=== PATIENT | female | born 1995 | race American Indian/Alaskan Native ===

== ENCOUNTER 2018-01-19 23:15 | Emergency (ER) | payer BC, OTHER ==
[2018-01-19 23:24] VITALS: BMI 20.5
[2018-01-19 23:30] VITALS: RESP 18
--- NOTE | 2018-01-19 23:40 | ED PDOC ---
Arrival/HPI - General Chief Complaint: Shortness Of Breath Time Seen by Provider: 01/19/18 23:30 Historian: Patient - History of Present Illness Narrative History of Present Illness (Text): 01/19/18 23:40 22 year old female, whose past medical history includes asthma, presents to the emergency department complaining of trouble breathing associated with dry cough and sinus congestion. Patient states she has been having more trouble than usual. Patient is not getting any relief with her inhaler. Patient denies any fever, chills, chest pain, nausea, vomiting, diarrhea, urinary symptoms, back pain, neck pain, headache, dizziness, or any other complaints. Symptom Course: Unchanged Activities at Onset: Light Context: Home Past Medical History - Provider Review Nursing Documentation Reviewed: Yes - Pulmonary Hx Asthma: Yes - Psychiatric Hx Substance Use: No Family/Social History - Physician Review Nursing Documentation Reviewed: Yes Family/Social History: No Known Family HX Smoking Status: Light Smoker < 10 Cigarettes Daily Hx Alcohol Use: Yes Frequency of alcohol use: Socially Hx Substance Use: No Allergies/Home Meds Allergies/Adverse Reactions: Allergies No Known Allergies Allergy (Verified 01/19/18 23:23) Home Medications: Home Meds Medication Instructions Recorded Confirmed Levalbuterol Tartrate [Xopenex Hfa] 15 gm IH Q4 PRN 01/19/18 01/19/18 Review of Systems - Physician Review All systems were reviewed & negative as marked: Yes - Review of Systems Constitutional: absent: Fevers, Other (Chills) ENT: Sinus Congestion Respiratory: SOB, Cough Cardiovascular: absent: Chest Pain Gastrointestinal: absent: Diarrhea, Nausea, Vomiting Genitourinary Female: absent: Dysuria, Frequency, Hematuria Musculoskeletal: absent: Back Pain, Neck Pain Neurological: absent: Headache, Dizziness Physical Exam Vital Signs Reviewed: Yes Vital Signs Temp Pulse Resp BP Pulse Ox 01/20/18 03:01 86 18 100 01/19/18 23:30 98.3 F 86 18 105/51 L 95 Temperature: Afebrile Blood Pressure: Normal Pulse: Regular Respiratory Rate: Normal Appearance: Positive for: Well-Appearing, Non-Toxic, Comfortable Pain Distress: None Mental Status: Positive for: Alert and Oriented X 3 - Systems Exam Head: Present: Atraumatic, Normocephalic Pupils: Present: PERRL Extroacular Muscles: Present: EOMI Conjunctiva: Present: Normal Mouth: Present: Moist Mucous Membranes Neck: Present: Normal Range of Motion Respiratory/Chest: Present: Wheezes (everywhere). No: Respiratory Distress, Accessory Muscle Use, Other (conversational dyspnea) Cardiovascular: Present: Regular Rate and Rhythm, Normal S1, S2. No: Murmurs Abdomen: No: Tenderness, Distention, Peritoneal Signs Back: Present: Normal Inspection Upper Extremity: Present: Normal Inspection. No: Cyanosis, Edema Lower Extremity: Present: Normal Inspection. No: Edema Neurological: Present: GCS=15, CN II-XII Intact, Speech Normal Skin: Present: Warm, Dry, Normal Color. No: Rashes Psychiatric: Present: Alert, Oriented x 3, Normal Insight, Normal Concentration Medical Decision Making ED Course and Treatment: 01/19/18 23:40 Impression: 22 year old female presents complaining of shortness of breath associated with dry cough and sinus congestion. PE shows wheezes everywhere. Plan: -- Labs -- Chest X-Ray -- Albuterol, Douneb, Rocephin, Solu-Medrol, Zithromax -- Reassess and disposition Progress Notes: 01/20/18 01:03 Patient's test came back positive. Chest X-Ray was canceled. 01/20/18 03:05 On reevaluation the patient feels better and is in no acute distress. I have discussed the results and plan with the patient, who expresses understanding. Patient given the opportunity to ask question, all questions were answered and there is agreement with the plan to discharge the patient home. Patient is stable for discharge. Patient was instructed to follow up with physician or return if symptoms persist/worsen or new concerning symptoms arise. - Lab Interpretations Lab Results: 01/20/18 00:37 01/20/18 00:37 Lab Results 01/20/18 00:37: Blood Type Pending, Antibody Screen Pending, BBK History Checked No verified bt 01/20/18 00:37: Beta HCG, Quant 1111.70 H 01/20/18 00:37: Sodium 138, Potassium 3.8, Chloride 105, Carbon Dioxide 20 L, Anion Gap 16, BUN 17, Creatinine 0.7, Est GFR ( Amer) > 60, Est GFR (Non- Af Amer) > 60, Random Glucose 81, Calcium 8.9, Total Bilirubin 0.4, AST 25, ALT 22, Alkaline Phosphatase 55, Total Protein 7.6, Albumin 4.3, Globulin 3.3, Albumin/Globulin Ratio 1.3 01/20/18 00:37: WBC 9.5, RBC 3.98, Hgb 13.3, Hct 37.3, MCV 93.7, MCH 33.4, MCHC 35.7, RDW 12.6, Plt Count 242, MPV 9.8, Gran % 65.2, Lymph % (Auto) 24.8, [place] % (Auto) 5.5, Eos % (Auto) 4.0, Baso % (Auto) 0.5, Gran # 6.17, Lymph # (Auto) 2.4, [place] # (Auto) 0.5, Eos # (Auto) 0.4, Baso # (Auto) 0.05 I have reviewed the lab results: Yes - Medication Orders Current Medication Orders: Discontinued Medications Albuterol Sulfate (Albuterol 0.083% Inhal [place] (2.5 Mg/3 Ml) Ud) 5 mg INH STAT STA Stop: 01/19/18 23:45 Last Admin: 01/20/18 00:44 Dose: 5 mg Albuterol/Ipratropium (Duoneb 3 Mg/0.5 Mg (3 Ml) Ud) 3 ml IH STAT STA Stop: 01/19/18 23:45 Last Admin: 01/20/18 00:44 Dose: 3 ml Ceftriaxone Sodium (Rocephin 1 Gram Ivpb) 1 gm in 100 mls @ 200 mls/hr IVPB STAT STA PRN Reason: Protocol Stop: 01/20/18 00:15 Last Admin: 01/20/18 00:45 Dose: 200 mls/hr eMAR Start Stop Document 01/20/18 00:45 (Rec: 01/20/18 00:45 [id number]) Intravenous Solution Start Date 01/20/18 Start Time 00:45 Azithromycin (Zithromax 500mg In Ns) 500 mg in 250 mls @ 167 mls/hr IVPB STAT STA PRN Reason: Protocol Stop: 01/20/18 01:15 Last Admin: 01/20/18 00:44 Dose: 167 mls/hr eMAR Start Stop Document 01/20/18 00:44 SH (Rec: 01/20/18 00:44 [id number]) Intravenous Solution Start Date 01/20/18 Start Time 00:44 Methylprednisolone (Solu-Medrol) 125 mg IVP STAT STA Stop: 01/19/18 23:47 Last Admin: 01/20/18 00:45 Dose: 125 mg IVP Administration Document 01/20/18 00:45 (Rec: 01/20/18 00:45 [id number]) Charges for Administration # of IVP Administrations 1 - Scribe Statement The provider has reviewed the documentation as recorded by the Tony Sterling Provider Scribe Attestation: All medical record entries made by the Rhondaibe were at my direction and personally dictated by me. I have reviewed the chart and agree that the record accurately reflects my personal performance of the history, physical exam, medical decision making, and the department course for this patient. I have also personally directed, reviewed, and agree with the discharge instructions and disposition. Disposition/Present on Arrival - Present on Arrival Any Indicators Present on Arrival: No History of DVT/PE: No History of Uncontrolled Diabetes: No Urinary Catheter: No History of Decub. Ulcer: No History Surgical Site Infection Following: None - Disposition Have Diagnosis and Disposition been Completed?: Yes Diagnosis: Asthma, Bronchitis, Disposition: HOME/ ROUTINE Disposition Time: 02:37 Patient Plan: Discharge Patient Problems: Current Active Problems Problem Status Onset Asthma Acute Bronchitis Acute Acute Condition: GOOD Discharge Instructions (ExitCare): Asthma in Adults, Asthma, Adult (DC), Acute Bronchitis, Adult (DC), Acute Bronchitis, Medicines for Asthma, Care, - The First Month Additional Instructions: Follow up with [facility] for your . Follow up with your regular doctor for your Asthmatic Bronchitis. Return to us if any problems. Prescriptions: Azithromycin [Zithromax] 500 mg PO DAILY 7 Days #7 tablet Forms: [facility] (Thai), WORK NOTE, SCHOOL NOTE
[2018-01-19] MEDS ORDERED: Albuterol-Ipratrop 3 mg / 0.5 (3 ml) UD IH STA (23:44)
[2018-01-19] MEDS ORDERED: Albuterol 0.083% Inhal Sol (2.5 mg/3 mL) UD INH STA (23:44)
[2018-01-19] MEDS ORDERED: Azithromycin 500MG/NS 250ml 500 MG/250 ML BAG IVPB STA (23:46)
[2018-01-19] MEDS ORDERED: cefTRIAXone 1 gm 1 GM/100 ML BAG IVPB STA (23:46)
[2018-01-20 00:49] LABS: BASO # 0.05 K/mm3 (0.0-2.0); BASO % 0.5 % (0.0-3.0); EOS # 0.4 (0.0-0.7); GRAN # 6.17 (1.4-6.5); GRAN % 65.2 % (50.0-68.0); HEMOGLOBIN 13.3 g/dL (12.0-16.0); LYMPH # 2.4 (1.2-3.4); LYMPH % 24.8 % (22.0-35.0); MEAN CELL VOLUME 93.7 fl (80.0-105.0); MEAN CORPUSCULAR HEMOGLOBIN 33.4 pg (25.0-35.0); MEAN CORPUSCULAR HGB CONC 35.7 g/dl (31.0-37.0); MEAN PLATELET VOLUME 9.8 fl (7.0-11.0); MONO # 0.5 (0.1-0.6); MONO % 5.5 % (1.0-6.0); RBC 3.98 10^6/uL (3.5-6.1); RED CELL DISTRIBUTION WIDTH 12.6 % (11.5-14.5); WHITE BLOOD COUNT 9.5 10^3/ul (4.5-11.0)
[2018-01-20 01:00] LABS: ALB/GLOB RATIO 1.3 (1.1-1.8); ALBUMIN 4.3 g/dL (3.0-4.8); ALT/SGPT 22 U/L (7-56); AST/SGOT 25 U/L (14-36); BLOOD UREA NITROGEN 17 mg/dL (7-21); CALCIUM 8.9 mg/dL (8.4-10.5); GFR AFRICAN-AMERICAN > 60; GFR NON-AFRICAN AMERICAN > 60
[2018-01-20 03:02] VITALS: O2SAT 100
[2018-01-20 03:25] VITALS: BP 111/76; PULSE 98; TEMP 97.8
== END 2018-01-20 03:20 | disposition home or self-care (01) ==
LOC: ED 23:15
DX: O26.899 Other specified pregnancy related conditions, unspecified trimester (principal); Z3A.00 Weeks of gestation of pregnancy not specified; J45.909 Unspecified asthma, uncomplicated; F17.210 Nicotine dependence, cigarettes, uncomplicated
CPT/HCPCS: 80053; 84702; 85025; 86850; 86900; 96374; 99284; J0456; J0696; J2930

== ENCOUNTER 2018-04-01 18:11 | Observation (INO) | payer BC ==
[2018-04-01 18:11] VITALS: BMI 20.5
[2018-04-01] MEDS ORDERED: Albuterol-Ipratrop 3 mg / 0.5 (3 ml) UD ONE (18:31)
[2018-04-01] MEDS: Albuterol-Ipratrop 3 mg / 0.5 (3 ml) UD IH SCH ×3 (19:19→20:59)
--- NOTE | 2018-04-01 19:24 | ED PDOC ---
Arrival/HPI - General Historian: Patient - History of Present Illness Narrative History of Present Illness (Text): 04/01/18 19:00 A 22 year old female, whose past medical history includes asthma, presents to the emergency department complaining of cough for 2-3 days. Patient reports she also was experiencing mild sore throat, which has now subsided. However, afterwards patient's asthma was brought on. Patient used her nebulizer 3-4 times today with some improvement, however she still feels that she is wheezing. Patient denies fever, chest pain, or any other complaints at this time. Denies any recent travel. Admits to coming to the Emergency room in the past for asthma. Has never been intubated. PMD [place] <Holly Pierre PA-C - Last Filed: 04/01/18 22:02> <Michael Doe - Last Filed: 04/02/18 07:20> - General Chief Complaint: Shortness Of Breath Time Seen by Provider: 04/01/18 18:24 Past Medical History - Provider Review Nursing Documentation Reviewed: Yes - Pulmonary Hx Asthma: Yes - Psychiatric Hx Substance Use: No - Surgical History Other/Comment: D&C x 12 days - Anesthesia Hx Anesthesia: Yes Hx Anesthesia Reactions: No Hx Malignant Hyperthermia: No <Holly Pierre PA-C - Last Filed: 04/01/18 22:02> Family/Social History - Physician Review Nursing Documentation Reviewed: Yes Family/Social History: No Known Family HX Smoking Status: Light Smoker < 10 Cigarettes Daily Hx Alcohol Use: Yes Hx Substance Use: No <Holly Pierre PA-C - Last Filed: 04/01/18 22:02> Allergies/Home Meds <Holly Pierre PA-C - Last Filed: 04/01/18 22:02> <Michael Doe - Last Filed: 04/02/18 07:20> Allergies/Adverse Reactions: Allergies No Known Allergies Allergy (Verified 01/19/18 23:23) Home Medications: Home Meds Medication Instructions Recorded Confirmed Levalbuterol Tartrate [Xopenex Hfa] 15 gm IH Q4 PRN 01/19/18 01/19/18 Review of Systems - Physician Review All systems were reviewed & negative as marked: Yes - Review of Systems Constitutional: absent: Fevers ENT: absent: Sore Throat (had mild sore throat before, however it has subsided.) Respiratory: Cough Cardiovascular: absent: Chest Pain <Holly Pierre PA-C - Last Filed: 04/01/18 22:02> Physical Exam Vital Signs Reviewed: Yes Vital Signs Temp Pulse Resp BP Pulse Ox 04/01/18 18:40 18 04/01/18 18:18 97.8 F 99 H 18 126/73 99 Temperature: Afebrile Blood Pressure: Normal Pulse: Regular Respiratory Rate: Normal Appearance: Positive for: Well-Appearing, Non-Toxic, Comfortable Pain Distress: None Mental Status: Positive for: Alert and Oriented X 3 - Systems Exam Head: Present: Atraumatic, Normocephalic Pupils: Present: PERRL Extroacular Muscles: Present: EOMI Conjunctiva: Present: Normal Mouth: Present: Moist Mucous Membranes Neck: Present: Normal Range of Motion Respiratory/Chest: Present: Wheezes (expiratory wheezing.) Cardiovascular: Present: Regular Rate and Rhythm, Normal S1, S2. No: Murmurs Abdomen: No: Tenderness, Distention, Peritoneal Signs Back: Present: Normal Inspection Upper Extremity: Present: Normal Inspection. No: Cyanosis, Edema Lower Extremity: Present: Normal Inspection. No: Edema Neurological: Present: GCS=15, CN II-XII Intact, Speech Normal Skin: Present: Warm, Dry, Normal Color. No: Rashes Psychiatric: Present: Alert, Oriented x 3, Normal Insight, Normal Concentration <Holly Pierre PA-C - Last Filed: 04/01/18 22:02> Vital Signs Temp Pulse Resp BP Pulse Ox 04/01/18 21:18 130 H 22 122/72 100 04/01/18 18:40 18 04/01/18 18:18 97.8 F 99 H 18 126/73 99 <Michael Doe - Last Filed: 04/02/18 07:20> Medical Decision Making ED Course and Treatment: 04/01/18 19:05 Impression: 22 year old female with cough. Plan: -- SOLU-Medrol -- Reassess and disposition Progress Notes: On reevaluation, patient reports mild improvement of symptoms, still is wheezing, denies any CP. She reports having bronchitis in December and taking antibiotics then and her symptoms had improved. On exam, patient remains awake alert and oriented 3 in no acute respiratory distress. Neck is supple, lungs +scattered rhonchi with mild expiratory wheezing, cardiac tachycardic, repeat neuro exam shows no focal findings. Labs, duonebs x2, Mg 2 g IV and CXR ordered. Labs reviewed K 3.2, rest of labs wnl. Given KCl PO. CXR : NAD, as read by KENDELL. On second reevaluation, patient reports that she still has a mild wheeze, denies any CP. On exam, patient remains awake alert and oriented 3 in no acute respiratory distress. Neck is supple, lungs +scattered rhonchi with faint expiratory wheezing still present, cardiac tachycardic. Patient agrees with observation for status asthmaticus. Case d/w Dr. Davis and agrees with plan for observation. - Medication Orders Current Medication Orders: Discontinued Medications Albuterol/Ipratropium (Duoneb 3 Mg/0.5 Mg (3 Ml) Ud) 3 ml IH Q15M LEAH Stop: 04/01/18 19:16 Last Admin: 04/01/18 19:19 Dose: 3 ml Methylprednisolone (Solu-Medrol) 125 mg IM STAT STA Stop: 04/01/18 18:43 Last Admin: 04/01/18 19:19 Dose: 125 mg IM Administration Charges Document 04/01/18 19:19 EQ (Rec: 04/01/18 19:19 EQ [id number]) Injection Site MAR Injection Site Left Deltoid Charges for Administration # of IM Administrations 1 <Ignacio TOMLINSON,Holly Patel - Last Filed: 04/01/18 22:02> - Lab Interpretations Lab Results: 04/01/18 20:40 04/01/18 20:40 Lab Results 04/01/18 20:40: Sodium 140, Potassium 3.2 L, Chloride 105, Carbon Dioxide 22, Anion Gap 17, BUN 5 L, Creatinine 0.7, Est GFR ( Amer) > 60, Est GFR (Non-Af Amer) > 60, Random Glucose 124 H, Calcium 8.8, Magnesium 2.2, Total Bilirubin 0.4, AST 28, ALT 19, Alkaline Phosphatase 51, Total Protein 8.6 H, Albumin 4.8, Globulin 3.9, Albumin/Globulin Ratio 1.2 04/01/18 20:40: WBC 9.1, RBC 4.20, Hgb 14.2, Hct 41.3, MCV 98.3 D, MCH 33.8, MCHC 34.4, RDW 13.3, Plt Count 241, MPV 9.7, Gran % 86.9 H, Lymph % (Auto) 7.5 L , [place] % (Auto) 3.3, Eos % (Auto) 2.2, Baso % (Auto) 0.1, Gran # 7.87 H, Lymph # (Auto) 0.7 L, [place] # (Auto) 0.3, Eos # (Auto) 0.2, Baso # (Auto) 0.01 - RAD Interpretation Radiology Orders: 04/01/18 20:13 CHEST TWO VIEWS (PA/LAT) [RAD] Stat - Medication Orders Current Medication Orders: Acetaminophen (Tylenol 325mg Tab) 650 mg PO Q6H PRN PRN Reason: Fever >100.4 F Albuterol/Ipratropium (Duoneb 3 Mg/0.5 Mg (3 Ml) Ud) 3 ml IH Q2H PRN PRN Reason: Shortness of Breath Albuterol/Ipratropium (Duoneb 3 Mg/0.5 Mg (3 Ml) Ud) 3 ml IH [id number] [facility] Last Admin: 04/02/18 05:00 Dose: 3 ml Ceftriaxone Sodium (Rocephin 1 Gram Ivpb) 1 gm in 100 mls @ 100 mls/hr IVPB DAILY LEAH; Protocol Azithromycin (Zithromax 500mg In Ns) 500 mg in 250 mls @ 167 mls/hr IVPB DAILY LEAH; Protocol Methylprednisolone (Solu-Medrol) 40 mg IV Q8H LEAH Last Admin: 04/02/18 05:55 Dose: 40 mg eMAR Start Stop Document 04/02/18 05:55 SD (Rec: 04/02/18 05:55 SD [id number] Intravenous Solution Start Date 04/02/18 Start Time 05:55 Ondansetron HCl (Zofran Inj) 4 mg IVP Q6H PRN PRN Reason: Nausea/Vomiting Pantoprazole Sodium (Protonix Ec Tab) 40 mg PO 0630 [facility] Last Admin: 04/02/18 05:55 Dose: 40 mg Discontinued Medications Albuterol/Ipratropium (Duoneb 3 Mg/0.5 Mg (3 Ml) Ud) 3 ml IH Q15M LEAH Stop: 04/01/18 19:16 Last Admin: 04/01/18 19:19 Dose: 3 ml Albuterol/Ipratropium (Duoneb 3 Mg/0.5 Mg (3 Ml) Ud) 3 ml IH Q15M LEAH Stop: 04/01/18 20:31 Last Admin: 04/01/18 20:59 Dose: 3 ml Magnesium Sulfate (Magnesium Sulfate 2 Gm/50 Ml Water) 2 gm in 50 mls @ 50 mls/hr IVPB ONCE ONE Stop: 04/01/18 21:13 Last Admin: 04/01/18 20:47 Dose: 50 mls/hr eMAR Start Stop Document 04/01/18 20:47 CNR (Rec: 04/01/18 20:47 CNR [facility] [id number] Intravenous Solution Start Date 04/01/18 Start Time 20:47 End Date 04/01/18 End time 21:47 Total Infusion Time 60 Sodium Chloride (Sodium Chloride 0.9%) 1,000 mls @ 1,000 mls/hr IV .Q1H STA Stop: 04/01/18 21:13 Last Admin: 04/01/18 20:47 Dose: 1,000 mls/hr eMAR Start Stop Document 04/01/18 20:47 CNR (Rec: 04/01/18 20:47 CNR [facility] [id number] Intravenous Solution Start Date 04/01/18 Start Time 20:47 End Date 04/01/18 End time 21:47 Total Infusion Time 60 Methylprednisolone (Solu-Medrol) 125 mg IM STAT STA Stop: 04/01/18 18:43 Last Admin: 04/01/18 19:19 Dose: 125 mg IM Administration Charges Document 04/01/18 19:19 EQ (Rec: 04/01/18 19:19 EQ [id number]) Injection Site MAR Injection Site Left Deltoid Charges for Administration # of IM Administrations 1 Potassium Chloride (Potassium Chloride Oral Soln) 40 meq PO STAT STA Stop: 04/01/18 21:34 Last Admin: 04/01/18 21:43 Dose: 40 meq <Michael Doe - Last Filed: 10/02/18 07:20> - PA / REEL TENDER / Resident Statement VIRAL has reviewed & agrees with the documentation as recorded. - Scribe Statement The provider has reviewed the documentation as recorded by the Tony Mesa Provider Scribe Provider Tony Attestation: All medical record entries made by the Scribe were at my direction and personally dictated by me. I have reviewed the chart and agree that the record accurately reflects my personal performance of the history, physical exam, medical decision making, and the department course for this patient. I have also personally directed, reviewed, and agree with the discharge instructions and disposition. <Holly Pierre PA-C - Last Filed: 04/01/18 22:02> - PA / REEL TENDER / Resident Statement VIRAL has reviewed & agrees with the documentation as recorded. <Michael Doe - Last Filed: 04/02/18 07:20> Disposition/Present on Arrival - Present on Arrival Any Indicators Present on Arrival: No History of DVT/PE: No History of Uncontrolled Diabetes: No Urinary Catheter: No History of Decub. Ulcer: No History Surgical Site Infection Following: None - Disposition Have Diagnosis and Disposition been Completed?: Yes Disposition Time: 22:00 Patient Plan: Observation <Holly Pierre PA-C - Last Filed: 04/01/18 22:02> <Michael Doe - Last Filed: 04/02/18 07:20> - Disposition Diagnosis: Status asthmaticus Disposition: HOSPITALIZED Patient Problems: Current Active Problems Problem Status Onset Status asthmaticus Acute Condition: STABLE
[2018-04-01] MEDS ORDERED: Sodium Chloride 0.9% 1,000 ML IV STA (20:14)
[2018-04-01] MEDS ORDERED: Magnesium Sulfate 2 gm/50 ml 2 GM/50 ML BAG IVPB ONE (20:14)
[2018-04-01 21:12] LABS: BASO # 0.01 K/mm3 (0.0-2.0); BASO % 0.1 % (0.0-3.0); EOS # 0.2 (0.0-0.7); EOS % 2.2 % (1.5-5.0); GRAN # 7.87 (1.4-6.5); GRAN % 86.9 % (50.0-68.0); HEMOGLOBIN 14.2 g/dL (12.0-16.0); LYMPH # 0.7 (1.2-3.4); LYMPH % 7.5 % (22.0-35.0); MEAN CELL VOLUME 98.3 fl (80.0-105.0); MEAN CORPUSCULAR HEMOGLOBIN 33.8 pg (25.0-35.0); MEAN CORPUSCULAR HGB CONC 34.4 g/dl (31.0-37.0); MEAN PLATELET VOLUME 9.7 fl (7.0-11.0); MONO # 0.3 (0.1-0.6); MONO % 3.3 % (1.0-6.0); RBC 4.2 10^6/uL (3.5-6.1); RED CELL DISTRIBUTION WIDTH 13.3 % (11.5-14.5); WHITE BLOOD COUNT 9.1 10^3/ul (4.5-11.0)
[2018-04-01 21:19] LABS: ALB/GLOB RATIO 1.2 (1.1-1.8); ALBUMIN 4.8 g/dL (3.0-4.8); ALT/SGPT 19 U/L (7-56); AST/SGOT 28 U/L (14-36); BLOOD UREA NITROGEN 5 mg/dL (7-21); CALCIUM 8.8 mg/dL (8.4-10.5); GFR NON-AFRICAN AMERICAN > 60
[2018-04-01] MEDS ORDERED: Potassium Chloride 40 mEq/30 ml LIQ UD PO STA (21:33)
[2018-04-01] MEDS ORDERED: Albuterol-Ipratrop 3 mg / 0.5 (3 ml) UD IH PRN (22:40)
[2018-04-01] MEDS: MethylPREDNISolone 40 mg Vial IV SCH (22:43)
[2018-04-02] MEDS: Albuterol-Ipratrop 3 mg / 0.5 (3 ml) UD IH SCH ×4 (05:00→19:47)
[2018-04-02] MEDS: MethylPREDNISolone 40 mg Vial IV SCH ×3 (05:55→22:09)
[2018-04-02] MEDS: Pantoprazole 40 mg EC Tab PO SCH (05:55)
--- NOTE | 2018-04-02 07:52 | RAD ---
Date of service: 04/01/2018 HISTORY: cough COMPARISON: No prior. TECHNIQUE: Chest PA and lateral FINDINGS: LUNGS: No active pulmonary disease. PLEURA: No significant pleural effusion identified. No pneumothorax apparent. CARDIOVASCULAR: Normal. OSSEOUS STRUCTURES: No significant abnormalities. VISUALIZED UPPER ABDOMEN: Normal. OTHER FINDINGS: None. IMPRESSION: No active disease.
--- NOTE | 2018-04-02 09:25 | HP ---
HISTORY OF PRESENT ILLNESS: The patient is a 22-year-old known asthmatic. She states she was having upper respiratory symptoms including sore throat, cough, congestion that has kind of subsided, but for the last two days, she is having increasing chest congestion, shortness of breath, as if she is not have enough oxygen. She had fever initially, but does not have fever today. The patient states she has been using her inhales couple of times a day with no significant improvement. PAST MEDICAL HISTORY: Significant for asthma, for that she was recently seen by her PMD, was given Zithromax and nebulizer that she has been using with no significant relief. ALLERGIES: SHE IS NOT ALLERGIC TO ANY MEDICATIONS. MEDICATIONS AT HOME: She is on Xopenex and Zithromax. SOCIAL HISTORY: She smokes less than 10 cigarettes a day. PHYSICAL EXAMINATION GENERAL: She has mild shortness of breath with wheezing. VITAL SIGNS: She is afebrile, pulse 99, respiration 18, blood pressure 126/73. LUNGS: Bilateral fair airflow with expiratory rhonchi. HEART: S1, S2 audible. ABDOMEN: Soft, nontender. No rebound, no guarding. NEUROLOGIC: The patient is awake, alert, oriented, communicative. LABORATORY DATA: WBC is 9.1, hemoglobin 14, hematocrit 41.3, platelet 241. Chemistry: Sodium 140, potassium 3.2, chloride 105, CO2 of 22, BUN 5, creatinine 0.7, blood sugar of 124. LFTs are within normal limit. X-ray chest is unremarkable. ASSESSMENT: 1. Asthma exacerbation. 2. Bronchospasm. 3. Asthmatic bronchitis. 4. Hypokalemia. PLAN: The patient will be placed in observation. We will start IV steroid, IV antibiotic, nebulizer treatment and GI prophylaxis and we will reevaluate in a.m. The patient started to improve. We will make adjustment in steroids and nebulizer treatment. Elisha Davis MD
[2018-04-02] MEDS: cefTRIAXone 1 gm 1 GM/100 ML BAG IVPB SCH (10:14)
[2018-04-02] MEDS: Azithromycin 500MG/NS 250ml 500 MG/250 ML BAG IVPB SCH (11:17)
[2018-04-02 11:51] LABS: BLOOD UREA NITROGEN 4 mg/dL (7-21); CALCIUM 9.5 mg/dL (8.4-10.5); GFR NON-AFRICAN AMERICAN > 60
--- NOTE | 2018-04-02 17:10 | PN ---
DATE: 04/02/2018 SUBJECTIVE: The patient is 22 years old, seen and examined. Lying in bed. Still has cough, congestion, dense wheezing bilaterally. Complained of cough, sometimes productive. PHYSICAL EXAMINATION: VITAL SIGNS: She is afebrile, pulse 104, respiration 20, blood pressure 112/72. LUNGS: Bilateral harsh expiratory rhonchi, diffuse posteriorly and anteriorly. ABDOMEN: Soft, nontender. No rebound. No guarding. NEUROLOGICAL: The patient is awake, alert, oriented, and communicative. LABORATORY EXAM: Sodium 140, potassium 4.4, chloride 108, CO2 of 19. BUN 4, creatinine 0.5. Blood sugar of 165. ASSESSMENT: 1. Asthma exacerbation. 2. Asthmatic bronchitis. 3. Bronchospasm. PLAN: We will continue the patient on current antibiotic nebulizer treatment and IV steroids. We will reevaluate the patient in a.m. for possible discharge. Elisha Davis MD
[2018-04-02 22:19] VITALS: O2SAT 96
[2018-04-03] MEDS: Albuterol-Ipratrop 3 mg / 0.5 (3 ml) UD IH SCH ×2 (01:40→07:39)
[2018-04-03] MEDS: Pantoprazole 40 mg EC Tab PO SCH (06:36)
[2018-04-03] MEDS: MethylPREDNISolone 40 mg Vial IV SCH (06:38)
[2018-04-03 08:26] VITALS: BP 110/64; PULSE 69; RESP 100; TEMP 98
[2018-04-03] MEDS: cefTRIAXone 1 gm 1 GM/100 ML BAG IVPB SCH (10:14)
[2018-04-03] MEDS: Azithromycin 500MG/NS 250ml 500 MG/250 ML BAG IVPB SCH (11:23)
--- NOTE | 2018-04-04 08:05 | DS ---
HISTORY OF PRESENT ILLNESS: The patient is a 22-year-old who came in with increasing shortness of breath, cough, congestion, bilateral dense wheezing, was placed on observation for IV steroid, nebulizer treatment. The patient was seen and examined today, doing well. PHYSICAL EXAMINATION: VITAL SIGNS: She is afebrile, pulse 69, respiration 18, blood pressure 110/64. LUNGS: Bilateral expiratory rhonchi. HEART: S1, S2 audible. ABDOMEN: Soft and nontender. No rebound, no guarding. NEUROLOGIC: The patient is awake, alert, oriented, communicative. EXTREMITIES: Able to move all extremities. ASSESSMENT: 1. Asthma exacerbation. 2. Asthmatic bronchitis. 3. Hypokalemia. PLAN: The patient will be discharged home today on Levaquin 500 daily for 5 days and Medrol Dosepak and she will follow up with her . Elisha Davis MD
--- NOTE | 2018-04-11 11:44 | PQF ---
PROVIDER RESPONSE TEXT: Moderat persistant REVIEWER QUERY TEXT: Asthma Specificity and Type Asthma is documented in the Medical Record. Please specify the type and severity of asthma and indic ate if this is associated with exacerbation or status asthmaticus. Such as: -- Mild intermittent -- Mild persistent -- Moderate persistent -- Severe persistent -- Exercise induced bronchospasm -- Cough variant asthma -- Other, please specify The patient's Clinical Indicators include: Please see below. Thank you. Query created by: Valentina Bonilla on 04/05/2018 9:10 AM Electronically signed by: Elisha Davis MD 04/11/2018 11:42 AM
== END 2018-04-03 15:09 | disposition home or self-care (01) ==
LOC: ED 18:11 → ERH 22:04 → 5RNO 04-02 01:05 → UNDODISOB 04-03 12:51 → 5RNO 04-03 13:02
PROVIDERS: ADMIT Internal Medicine; ATTEND Internal Medicine
DX: J45.41 Moderate persistent asthma with (acute) exacerbation (principal); J45.42 Moderate persistent asthma with status asthmaticus; E87.6 Hypokalemia; F17.210 Nicotine dependence, cigarettes, uncomplicated; R40.2412 Glasgow coma scale score 13-15, at arrival to emergency department
CPT/HCPCS: 36415; 71046; 80048; 80053; 83735; 85025; 94640; 94760; 96365; 96366; 96367; 96372; 96375; 96376; 99285; G0378; J0456; J0696; J2920; J2930; J3480; J7030